=== PATIENT | female | born 2000 | race Caucasian/White ===

== ENCOUNTER 2023-03-21 18:49 | Emergency (ER) | payer BC, OTHER, SELFPAY ==
[2023-03-21 18:54] VITALS: BP 134/82; PULSE 56; RESP 18; TEMP 36.9; O2SAT 97; BMI 21.9
--- NOTE | 2023-03-21 19:12 | CRLHL7_ITS ---
For Patients: As a result of the Cures Act, medical imaging exams and procedure reports are released immediately into your electronic medical record. You may view this report before your referring provider. If you have questions, please contact your health care provider. INDICATION: Hockey injury, upper cervical pain. COMPARISON: None TECHNIQUE: CT of the cervical spine without contrast. Multiplanar axial, coronal, and sagittal reformats were reconstructed. FINDINGS: No fracture or dislocation. Reversal of the normal cervical lordosis with the apex at C5. No disc degenerative change. No facet degenerative change. No severe neural foraminal stenosis. No central canal stenosis. No focal bony lesions. Limited exam of the intracranial contents, soft tissues of the neck, and the lung apices is normal. IMPRESSION: Reversal of the normal cervical lordosis may be positional or related to muscle strain. No fracture or dislocation in the cervical spine. Please note that all CT scans at this facility use dose modulation, iterative reconstruction, and/or weight-based dosing when appropriate to reduce radiation dose to as low as reasonably achievable. Dictated by Quita Pfeiffer MD @ 03/21/2023 8:48:18 PM (Electronically Signed)
--- NOTE | 2023-03-21 19:21 | ED.GENADULT ---
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 She went into the [employer] and kind of hit the boards chin 1st. Since then she has had upper cervical pain. Was evaluated there by Dr. Shah and sent here for further evaluation due to persistent pain. She does not have radiating pain, numbness or weakness. No other head injury. No other complaints. Has not taken anything for pain. Related Data Home Medications Medication Instructions Recorded Confirmed norgestimate-ethinyl estradiol 1 tab PO DAILY 07/17/22 03/21/23 0.18 mg/0.215mg/0.25mg-35 mcg(28)tablet Previous Rx's Medication Instructions Recorded amoxicillin 875 mg-potassium 1 tab PO BID #20 tabs 07/17/22 clavulanate 125 mg tablet Allergies Allergy/AdvReac Type Severity Reaction Status Date / Time No Known Drug Allergies Allergy Verified 07/17/22 19:41 Review of Systems Status of ROS: Reports: 6 or more systems reviewed and unremarkable except as noted in History and below [facility] Medical History Sinus infection ?J32.9 - Chronic sinusitis, unspecified (ICD-10) Social History Smoking Status: Never smoker Do you use any of these nicotine containing products: None Second hand tobacco smoke exposure: No How often do you have a drink containing alcohol: never How often do you have six or more drinks on one occasion: Never AUDIT-C Alcohol total score: 0 Non-prescribed substance use: denies use service: No Exam Narrative: Exam Narrative: Vital signs reviewed In general, alert, nontoxic young woman. Head: Normocephalic, atraumatic. Eyes: Pupils are equal and reactive ENT no facial trauma. Neck: She has some tenderness really up in the occipital not much primarily. The rest of the cervical spine is nontender to palpation. She was not placed in a collar on scene as she was protecting her neck and felt not to need 1. Heart: Regular rate and rhythm. Lungs: Clear, breath sounds equal. Neurologic: She is alert, conversant, speech fluent. Strength is equal in upper extremities, sensation is intact to light touch Skin: Warm and dry Const: Vital Signs, click to edit/add: Vital Signs - 24 hr 03/21/23 18:54 Temperature 98.5 F Pulse Rate [Pulse Oximeter] 56 L Respiratory Rate 18 Blood Pressure [Ri ght Upper Arm] 134/82 Pulse Oximetry 97 Oxygen Delivery Me thod Room Air Course Course ED Course: CT scan was ordered, I did not see any abnormalities and final radiology read is negative. However, she has ongoing pain and tenderness in the midline and therefore I did recommend that she have an MRI to fully rule out unstable injury such as ligamentous injury. She can use ibuprofen or Tylenol in the meantime. Dr. Shah had said he would follow her up and get MRI scheduled. She should return at any time for severe uncontrolled pain or radiating pain, numbness weakness etc.. Vital Signs Vital signs: Initial Vital Signs Temperature 98.5 F 03/21/23 18:54 Temperature Source Temporal Artery Scan 03/21/23 18:54 Pulse Rate 56 L 03/21/23 18:54 Pulse Rhythm Regular 03/21/23 18:54 Respiratory Rate 18 03/21/23 18:54 Blood Pressure 134/82 03/21/23 18:54 Blood Pressure Mean 99 03/21/23 18:54 Blood Pressure Position Supine 03/21/23 18:54 Pulse Oximetry 97 03/21/23 18:54 Oxygen Delivery Method Room Air 03/21/23 18:54 Vital Signs Temperature 98.5 F 03/21/23 18:54 Pulse Rate 56 L 03/21/23 18:54 Respiratory Rate 18 03/21/23 18:54 Blood Pressure 134/82 03/21/23 18:54 Pulse Oximetry 97 03/21/23 18:54 Oxygen Delivery Method Room Air 03/21/23 18:54 Temperature 98.5 F 03/21/23 18:54 Pulse Rate 56 L 03/21/23 18:54 Respiratory Rate 18 03/21/23 18:54 Blood Pressure 134/82 03/21/23 18:54 Pulse Oximetry 97 03/21/23 18:54 Oxygen Delivery Method Room Air 03/21/23 18:54 Discharge Plan Discharge Clinical Impression: Injury of neck Patient Disposition: Home, Self-Care Condition: Stable Instructions: Cervical Sprain (ED) Additional Instructions: CT was negative for any acute bony abnormalities such as fracture. Given ongoing pain I would recommend that you wear a cervical collar and have additional imaging to rule out ligamentous injury. You can use ibuprofen or Tylenol as needed for pain. Ice may be helpful as well. Expect slight Ross worse symptoms tomorrow and then gradual improvement. If at any time you have severe uncontrolled pain, radiating pain, weakness or numbness in your arms, return to the emergency department right away. Prescriptions: No Action norgestimate-ethinyl estradiol 0.18/0.215/0.25 mg-35 mcg (28) tablet 1 tab PO DAILY amoxicillin-pot clavulanate 875-125 mg tablet 1 tab PO BID Qty: 20 0RF Follow Up/Referrals: Provider,Not a Local [Primary Care Provider] - Stand Alone Forms: [employer] Info Instructions
== END 2023-03-21 21:10 | disposition home or self-care (01) ==
PROVIDERS: Emergency Provider Emergency Medicine
DX: T14.90XA Injury, unspecified, initial encounter (principal); W22.01XA Walked into wall, initial encounter; Y93.22 Activity, ice hockey
CPT/HCPCS: 72125; 99284